=== PATIENT | male | born 1960 | race Caucasian/White ===

== ENCOUNTER 2017-07-03 14:04 | Emergency (ER) | payer BC ==
[~2017-07-03] VITALS: Ht 180.3 cm; Wt 98.0 kg
[~2017-07-03 14:04] MED LIST: CIPR500T4 PO; HYDR-3498 PO; LISI-329 PO; LOVA40TA PO; METR500T PO; OMEP20CA16 PO; ONDA8TAB83 PO; VALA1000 PO
[2017-07-03 14:10] VITALS: Ht 180.3 cm; Wt 98.0 kg
[2017-07-03] MEDS ORDERED: HYDROCODONE/APAP (10/325) TAB PO ONE (14:30)
[2017-07-03] MEDS ORDERED: SOD CHLORIDE 0.9% 1,000 ML IV STA (14:34)
[2017-07-03] MEDS ORDERED: KETOROLAC 30 MG INJ IV STA (14:34)
[2017-07-03 14:55] LABS: BASOPHIL # 0.1 10^3/ul (0.0-0.1); BASOPHILS % 0.8 % (0.0-2.0); EOSINOPHILS # 0.1 10^3/ul (0.0-0.5); EOSINOPHILS % 1.3 % (0.0-7.0); HEMATOCRIT 42.9 % (42.0-52.0); HEMOGLOBIN 15.6 g/dl (14.0-18.0); LYMPHOCYTES # 1.7 10^3/ul (0.8-2.9); LYMPHOCYTES % 17.9 % (15.0-51.0); MEAN CORPUSCULAR HEMOGLOBIN 33.8 pg (29.0-33.0); MEAN CORPUSCULAR HGB CONC 36.4 g/dl (32.0-37.0); MEAN CORPUSCULAR VOLUME 93.1 fl (82.0-101.0); MEAN PLATELET VOLUME 9.6 fl (7.4-10.4); MONOCYTE # 0.8 10^3/ul (0.3-0.9); MONOCYTES % 8.4 % (0.0-11.0); NEUTROPHILS % 71.3 % (39.0-77.0); PLATELET COUNT 221 10^3/UL (140-415); RED BLOOD COUNT 4.61 10^6/ul (4.70-6.10); RED CELL DISTRIBUTION WIDTH 12.8 % (11.5-14.5); WHITE BLOOD COUNT 9.3 10^3/ul (4.8-10.8)
[2017-07-03 15:12] LABS: ADD UMIC YES; UR ASCORBIC ACID NEGATIVE (NEGATIVE); UR BACTERIA FEW /HPF (NONE SEEN); UR BILIRUBIN (Dip) NEGATIVE (NEGATIVE); UR BLOOD (Dip) 3+ mg/dL (NEGATIVE); UR CLARITY CLOUDY (CLEAR); UR COLOR YELLOW (YELLOW); UR GLUCOSE (Dip) NEGATIVE (NEGATIVE); UR KETONES (Dip) NEGATIVE (NEGATIVE); UR LEUKOCYTE ESTERASE (Dip) NEGATIVE Leu/ul (NEGATIVE); UR MUCUS FEW /HPF (NONE SEEN); UR NITRITE (Dip) NEGATIVE (NEGATIVE); UR RBC > 182 /HPF (0-5); UR SPECIFIC GRAVITY (Dip) 1.014 (1.003-1.030); UR TOTAL PROTEIN (Dip) 1+ mg/dl (NEGATIVE); UR UROBILINOGEN (Dip) NEGATIVE (NEGATIVE)
[2017-07-03 15:14] LABS: ALBUMIN 4.4 g/dl (3.3-4.9); ALBUMIN/GLOBULIN RATIO 1.51; BILIRUBIN,INDIRECT 0.4 mg/dl (0-1.1); BILIRUBIN,TOTAL 0.4 mg/dl (0.2-1.3); CALCIUM 9.6 mg/dl (8.4-10.2); CREATININE 0.95 mg/dl (0.61-1.24); POTASSIUM 3.8 mmol/L (3.5-5.1); TOTAL PROTEIN 7.3 g/dl (6.1-8.1)
--- NOTE | 2017-07-03 16:19 | RADRPT ---
PROCEDURE: CT abdomen and pelvis without contrast. CLINICAL INDICATION: Abdominal pain. TECHNIQUE: CT scan of the abdomen and pelvis without contrast was performed on a multi-slice CT [facility] . Sagittal and coronal reformatted images were obtained from the axial source images. One or more of the following dose reduction techniques were used: - Automated exposure control. - Adjustment of the mA and/or kV according to patient size. - Use of iterative reconstruction technique. DLP 1124.5 mGycm. CTDIvol 18.7 mGy COMPARISON: 02/01/2016 FINDINGS: The lung bases are clear. Coronary artery calcifications are seen in the heart. There is limited evaluation of the solid viscera from the lack of IV contrast. There is an obstructing stone within the distal left ureter just beyond the level of the iliac vesse ls that measures 5 mm which causes mild left-sided hydronephrosis and perinephric fat stranding. Th ere is a nonobstructing 5 mm stone in the upper pole of the right kidney. No right-sided ureteral s tone is present with no inflammation. There is fatty infiltration of the liver with no gross focal lesion or biliary ductal dilatation. T he gallbladder is unremarkable without inflammation. The spleen is unremarkable without mass. The adrenal glands are within normal limits without mass. The pancreas is unremarkable without focal lesion or surrounding inflammatory changes. There is no bowel obstruction or focal bowel inflammation. The appendix is unremarkable. There is a fecal filled colon.. There is diverticulosis without diverticulitis. There is no free air or erika e fluid. There are no enlarged lymph nodes. There is aortic atherosclerosis without aneurysmal dilatation. Degenerative changes are seen in t he lumbar spine with no acute osseous abnormality. The prostate is mildly enlarged. IMPRESSION: Obstructing distal left ureteral stone causes mild hydronephrosis and measures 5 mm. Nonobstructing right-sided stone is present. Fatty liver. No evidence of bowel obstruction or inflammation. There is a fecal filled colon. There is diverticul osis without diverticulitis. Atherosclerotic disease is present. RPTAT: AA .Fatoumata Parrish MD, Date Time Electronically viewed and signed by .Fatoumata Parrish MD, MD on 07/03/2017 16:19 .Cherelle/
[2017-07-03] MEDS ORDERED: TAMS-14 PO (17:19)
[2017-07-03] MEDS ORDERED: IBUP-1542 PO (17:19)
[2017-07-03] MEDS ORDERED: HYDR-906 PO (17:19)
[2017-07-03] MEDS ORDERED: ONDA4TAB14 PO (17:20)
--- NOTE | 2017-07-03 17:30 | ERD ---
ER Documentation Chief Complaint Date/Time DATE: 07/03/17 TIME: 17:22 Chief Complaint pt bib self with c/o left sided flank pain hx kidney stones HPI Patient is a 56-year-old male past medical history of diverticulitis and nephrolithiasis who presents to the emergency department with left-sided flank pain which started 1 day ago. Patient describes the pain to be in the left flank and radiating into left abdomen. Patient states the pain is like a "roller coaster". Patient denies any fevers, chills, nausea, vomiting, dysuria , hematuria, frequency. Patient states he did try acupuncture for symptoms yesterday with no alleviation. Denies any rectal bleeding, testicular pain or penile discharge. ROS All systems reviewed and are negative except as per history of present illness. Medications Home Meds Active Scripts Ondansetron (Ondansetron Odt) 4 Mg Tab.rapdis, 4 MG PO Q6H Y for NAUSEA AND/OR VOMITING, #10 TAB Prov:DARLIN LOVETT PA-C 07/03/17 Tamsulosin Hcl* (Flomax*) 0.4 Mg Cap.er.24h, 0.4 MG PO QPM, #15 CAP Prov:DARLIN LOVETT PA-C 07/03/17 Ibuprofen* (Motrin*) 600 Mg Tab, 600 MG PO Q6, #30 TAB Prov:DARLIN LOVETT PA-C 07/03/17 Hydrocodone/Acetaminophen ([place] 5-325 Tablet) 1 Each Tablet, 1 TAB PO Q6H Y for PAIN, #7 TAB Prov:DARLIN LOVETT PA-C 07/03/17 Hydrocodone Bit-Acetaminophen* ([place]*) 5-325 Mg Tab, 1 TAB PO q6h Y for PAIN LEVEL 6-10, #10 TAB Prov:MIJARESKAYLAA Chris. INVESTMENT REPRESENTATIVE 02/03/16 Ciprofloxacin Hcl* (Ciprofloxacin Hcl*) 500 Mg Tablet, 500 MG PO BID, #14 TAB Prov:MIJARESMARC V. INVESTMENT REPRESENTATIVE 02/03/16 Metronidazole* (Flagyl*) 500 Mg Tablet, 500 MG PO Q8 for 7 Days, TAB Prov:MIJARESMARC V. INVESTMENT REPRESENTATIVE 02/03/16 Reported Medications Valacyclovir Hcl* (Valacyclovir Hcl*) 1,000 Mg Tablet, 2000 MG PO BID, #20 02/01/16 Lovastatin (Lovastatin) 40 Mg Tablet, 40 MG PO QHS 02/01/16 Lisinopril-Hydrochlorothiazide (Lisinopril-HCTZ) 20-25 Mg Tab, 1 TAB PO BID 02/01/16 Omeprazole* (Omeprazole*) 20 Mg Capsule.dr, 20 MG PO DAILY 02/01/16 Ondansetron Hcl* (Ondansetron Hcl*) 8 Mg Tablet, 8 MG PO Q8 Y for NAUSEA AND/OR VOMITING 02/01/16 Allergies Allergies: Coded Allergies: No Known Allergy (Unverified , 01/31/16) PMhx/Soc History of Surgery: Yes (hernia and tonsillectomy) Anesthesia Reaction: No Hx Neurological Disorder: No Hx Respiratory Disorders: No Hx Cardiac Disorders: Yes (htn, high cholesterol) Hx Psychiatric Problems: No Hx Miscellaneous Medical Probl: Yes (kidney stones, diverticulitis) Hx Alcohol Use: Yes (occasional) Hx Substance Use: No Hx Tobacco Use: Yes Smoking Status: Current some day smoker Physical Exam Vitals Vital Signs Date Time Temp Pulse Resp B/P Pulse Ox O2 Delivery O2 Flow Rate FiO2 07/03/17 14:10 98.2 82 18 198/81 97 Physical Exam GENERAL: Well-developed, well-nourished male. Diffiiculty with sitting still. HEAD: Normocephalic, atraumatic. EYES: Pupils are equally reactive bilaterally. EOMs grossly intact. No conjunctival erythema. ENT: Moist mucous membranes. No uvula deviation. No kissing tonsils. NECK: Supple. No meningismus. Normal range of motion of the neck. LUNG: Clear to auscultation bilaterally. No rhonchi, wheezing, rales or coarse breath sounds. HEART: Regular rate and rhythm. No murmurs, rubs or gallops. ABDOMEN: Soft, nontender, and nondistended. Positive bowel sounds in all four quadrants. No rebound tenderness, no guarding. (-) McBurney's point tenderness. Left CVA tenderness. EXTREMITIES: Equal pulses bilaterally. No peripheral clubbing, cyanosis or edema. No unilateral leg swelling. NEUROLOGIC: Alert and oriented. Moving all four extremities without any difficulty. Normal speech. Steady gait. SKIN: Normal color. Warm and dry. No rashes or lesions. Result Diagram: 07/03/17 3795 07/03/17 1445 Results 24 hrs Laboratory Tests Test 07/03/17 14:45 White Blood Count 9.310^3/ul Red Blood Count 4.6110^6/ul Hemoglobin 15.6g/dl Hematocrit 42.9% Mean Corpuscular Volume 93.1fl Mean Corpuscular Hemoglobin 33.8pg Mean Corpuscular Hemoglobin Concent 36.4g/dl Red Cell Distribution Width 12.8% Platelet Count 07996^3/UL Mean Platelet Volume 9.6fl Neutrophils % 71.3% Lymphocytes % 17.9% Monocytes % 8.4% Eosinophils % 1.3% Basophils % 0.8% Nucleated Red Blood Cells % 0.0/100WBC Neutrophils # (Manual) 6.610^3/ul Lymphocytes # 1.710^3/ul Monocytes # 0.810^3/ul Eosinophils # 0.110^3/ul Basophils # 0.110^3/ul Nucleated Red Blood Cells # 0.010^3/ul Urine Color YELLOW Urine Clarity CLOUDY Urine pH 7.0 Urine Specific [place] 1.014 Urine Ketones NEGATIVEmg/dL Urine Nitrite NEGATIVEmg/dL Urine Bilirubin NEGATIVEmg/dL Urine Urobilinogen NEGATIVEmg/dL Urine Leukocyte Esterase NEGATIVELeu/ul Urine Microscopic RBC > 182/HPF Urine Microscopic WBC 18/HPF Urine Bacteria FEW/HPF Urine Mucus FEW/HPF Urine Yeast (Budding) /HPF Urine Hemoglobin 3+mg/dL Urine Glucose NEGATIVEmg/dL Urine Total Protein 1+mg/dl Sodium Level 139mmol/L Potassium Level 3.8mmol/L Chloride Level 106mmol/L Carbon Dioxide Level 27mmol/L Anion Gap 10 Blood Urea Nitrogen 14mg/dl Creatinine 0.95mg/dl Glucose Level 102mg/dl Calcium Level 9.6mg/dl Total Bilirubin 0.4mg/dl Direct Bilirubin 0.00mg/dl Indirect Bilirubin 0.4mg/dl Aspartate Amino Transf (AST/SGOT) 24IU/L Alanine Aminotransferase (ALT/SGPT) 35IU/L Alkaline Phosphatase 72IU/L Total Protein 7.3g/dl Albumin 4.4g/dl Globulin 2.90g/dl Albumin/Globulin Ratio 1.51 Lipase 59U/L Current Medications Medications (Trade) Dose Ordered Sig/Juhi Route PRN Reason Start Time Stop Time Status Last Admin Dose Admin Acetaminophen/ Hydrocodone Bitart 1 tab 1 tab ONCE ONCE PO 07/03/17 14:30 07/03/17 14:31 Cancel Sodium Chloride (NS) 1,000 ml @ 1,000 mls/hr Q1H STAT IV 07/03/17 14:34 07/03/17 15:33 DC 07/03/17 14:54 Ketorolac Tromethamine (Toradol) 30 mg ONCE STAT IV 07/03/17 14:34 07/03/17 14:37 DC 07/03/17 14:53 Procedures/MDM ED COURSE: The patient was stable throughout ED course. I kept the patient and/or family informed of laboratory and diagnostic imaging results throughout the ED course. DIAGNOSTIC IMAGING: Read by radiologist. DIAGNOSTIC IMAGING REPORT Patient: RENATO TOM : 1960 Age: 56 Sex: M MR #: [id number] DOS: 07/03/17 1505 Ordering MD: DARLIN LOVETT PA-C Location: [facility] Room/Bed: PROCEDURE: CT abdomen and pelvis without contrast. CLINICAL INDICATION: Abdominal pain. TECHNIQUE: CT scan of the abdomen and pelvis without contrast was performed on a multi-slice CT scanner . Sagittal and coronal reformatted images were obtained from the axial source images. One or more of the following dose reduction techniques were used: - Automated exposure control. - Adjustment of the mA and/or kV according to patient size. - Use of iterative reconstruction technique. DLP 1124.5 mGycm. CTDIvol 18.7 mGy COMPARISON: 02/01/2016 FINDINGS: The lung bases are clear. Coronary artery calcifications are seen in the heart. There is limited evaluation of the solid viscera from the lack of IV contrast. There is an obstructing stone within the distal left ureter just beyond the level of the iliac vessels that measures 5 mm which causes mild left-sided hydronephrosis and perinephric fat stranding. There is a nonobstructing 5 mm stone in the upper pole of the right kidney. No right-sided ureteral stone is present with no inflammation. There is fatty infiltration of the liver with no gross focal lesion or biliary ductal dilatation. The gallbladder is unremarkable without inflammation. The spleen is unremarkable without mass. The adrenal glands are within normal limits without mass. The pancreas is unremarkable without focal lesion or surrounding inflammatory changes. There is no bowel obstruction or focal bowel inflammation. The appendix is unremarkable. There is a fecal filled colon.. There is diverticulosis without diverticulitis. There is no free air or free fluid. There are no enlarged lymph nodes. There is aortic atherosclerosis without aneurysmal dilatation. Degenerative changes are seen in the lumbar spine with no acute osseous abnormality. The prostate is mildly enlarged. IMPRESSION: Obstructing distal left ureteral stone causes mild hydronephrosis and measures 5 mm. Nonobstructing right-sided stone is present. Fatty liver. No evidence of bowel obstruction or inflammation. There is a fecal filled colon. There is diverticulosis without diverticulitis. Atherosclerotic disease is present. RPTAT: AA .Fatoumata Parrish MD, MD Date Time Electronically viewed and signed by .Fatoumata Parrish MD, MD on 07/03/2017 16:19 .J/ CC: DARLIN LOVETT PA-C MEDICAL DECISION MAKING: This is a 56-year-old male who presents emergency department for concerns of left-sided flank pain which is episodic in nature. Vital signs were reviewed. Patient is afebrile. Patient is not hypoxic. Abdominal exam revealed + Left sided CVA tenderness. UA showed + blood, no nitrites, no leukocyte esterase. CBC showed no evidence of systemic infection or severe anemia. CMP showed no evidence of electrolyte abnormalities, severe acidosis, alkalosis, renal failure, or liver disease. CT abdomen pelvis showed Obstructing distal left ureteral stone causes mild hydronephrosis and measures 5 mm. Nonobstructing right-sided stone is present. Fatty liver. No evidence of bowel obstruction or inflammation. There is a fecal filled colon. There is diverticulosis without diverticulitis. Atherosclerotic disease is present. I discussed the patient's presentation with my supervising physician Dr. Sharma who agreed the patient is stable for outpatient management. Given these findings, the patients presentation is most consistent with nephrolithiasis and diverticulosis. I have a much lower clinical concern for appendicitis, pyelonephritis, UTI, diverticulitis, AAA, bowel perforation, mesenteric ischemia, prostatitis, epididymitis, testicular torsion. PRESCRIPTIONS: Ibuprofen, [place],, Tamsulosin, Zofran DISCHARGE: Patient stable for outpatient management. Patient was given a copy of all blood work and imaging studies obtained today. I have instructed the patient to follow-up with his/her primary care physician in 2-3 days. Advised to follow -up with urologist. Referral information provided. I have instructed the patient to promptly return to the ER at any time for any new or worsening symptoms including increased pain, fever, discharge, nausea, vomiting or gross hematuria. The patient and/or family expressed understanding of and agreement with this plan. All questions were answered. Home care instructions were provided. Disclaimer: Inadvertent spelling and grammatical errors are likely due to EHR/ dictation software use and do not reflect on the overall quality of patient care. Also, please note that the electronic time recorded on this note does not necessarily reflect the actual time of the patient encounter. RPTAT: AA .Fatoumata Parrish MD, MD Date Time Electronically viewed and signed by .Fatoumata Parrish MD, MD on 07/03/2017 16:19 .J/ CC: DARLIN LOVETT PA-C PROCEDURES: None. MEDICATIONS GIVEN: IV fluids, Toradol Patient tolerated medication well with no adverse reactions. Patient reported improvement in pain. Departure Diagnosis: Primary Impression: Nephrolithiasis Additional Impression: Diverticulosis Diverticulosis site: unspecified location Diverticulosis bleeding: diverticulosis without bleeding Qualified Code: K57.90 - Diverticulosis of intestine without bleeding, unspecified intestinal tract location Condition: Stable Patient Instructions: Kidney Stones: Are You at Risk?, Understanding Kidney Stones Referrals: VIRGINIA ESPINOSA MD, GALESH L. MD DULA, EUGENE MD GARRETT,CHRISTIAN MABRY,MIHAI DASILVA,NANETTE Ash MD Additional Instructions: Drink plenty of fluids. Follow-up with your primary care physician for referral to a urologist for your ongoing kidney stones. Call your primary care doctor TOMORROW for an appointment during the next 1-2 days.See the doctor sooner or return here if your condition worsens before your appointment time. DARLIN LOVETT PA-C Jul 03, 2017 17:30
[2017-07-03 17:37] VITALS: BP 139/68; PULSE 79; RESP 18; TEMP 98.5
== END 2017-07-03 17:40 | disposition home or self-care (01) ==
LOC: FTE 14:04
DX: N20.0 Calculus of kidney (principal); K57.90 Diverticulosis of intestine, part unspecified, without perforation or abscess without bleeding; I10 Essential (primary) hypertension; F17.210 Nicotine dependence, cigarettes, uncomplicated
CPT/HCPCS: 36415; 74176; 80053; 81001; 83690; 85025; 96374; 99285; J1885; J7030

== ENCOUNTER 2017-08-07 07:02 | Emergency (ER) | payer BC ==
[~2017-08-07] VITALS: Ht 167.6 cm; Wt 97.0 kg
[~2017-08-07 07:02] MED LIST changes: +HYDR-906 PO; +IBUP-1542 PO; +ONDA4TAB14 PO; +TAMS-14 PO
[2017-08-07 07:05] VITALS: Ht 167.6 cm; Wt 97.0 kg
[2017-08-07] MEDS ORDERED: ONDANSETRON 4 MG INJ IV STA (07:24)
[2017-08-07] MEDS ORDERED: SOD CHLORIDE 0.9% 500 ML IV STA (07:24)
[2017-08-07] MEDS ORDERED: morphine 4 MG/ML VIAL IV STA (07:24)
[2017-08-07] MEDS ORDERED: KETOROLAC 15 MG INJ IV STA (07:24)
[2017-08-07] MEDS ORDERED: KETOROLAC 30 MG INJ IV STA (07:28)
[2017-08-07 07:54] LABS: ADD UMIC YES; UR ASCORBIC ACID 40 mg/dL (NEGATIVE); UR BACTERIA FEW /HPF (NONE SEEN); UR BILIRUBIN (Dip) NEGATIVE (NEGATIVE); UR BLOOD (Dip) 2+ mg/dL (NEGATIVE); UR CLARITY CLEAR (CLEAR); UR COLOR YELLOW (YELLOW); UR GLUCOSE (Dip) NEGATIVE (NEGATIVE); UR KETONES (Dip) NEGATIVE (NEGATIVE); UR LEUKOCYTE ESTERASE (Dip) NEGATIVE Leu/ul (NEGATIVE); UR MUCUS FEW /HPF (NONE SEEN); UR NITRITE (Dip) NEGATIVE (NEGATIVE); UR RBC 49 /HPF (0-5); UR SPECIFIC GRAVITY (Dip) 1.021 (1.003-1.030); UR TOTAL PROTEIN (Dip) 1+ mg/dl (NEGATIVE); UR UROBILINOGEN (Dip) NEGATIVE (NEGATIVE)
[2017-08-07] MEDS ORDERED: IBUP800T25 PO (08:08)
[2017-08-07] MEDS ORDERED: TAMS-14 PO (08:08)
[2017-08-07] MEDS ORDERED: OXYC-279 PO (08:08)
--- NOTE | 2017-08-07 08:23 | ERD ---
ER Documentation Chief Complaint Date/Time DATE: 08/07/17 TIME: 08:09 Chief Complaint Complains of flank pain Hx of kidney stone HPI 57-year-old male presenting to the ER complaining of right flank pain. Patient has a history of kidney stones in the past. He was seen here about 1 month ago for left flank pain and was found to have a left-sided ureter stone. On that CT , he was also noted to have a right sided nonobstructing 5 mm stone in the kidney. Patient states that he had pain about 5 days ago as well that self resolved after taking Percocet. He denies any obvious hematuria or dysuria. No fevers but he did have some chills today when he was having the pain with associated nausea but no vomiting. He denies any chest pain, shortness of breath, abdominal pain, or back injury. He does see a urologist for his kidney stones. ROS All systems reviewed and are negative except as per history of present illness. Medications Home Meds Active Scripts Oxycodone HCl/Acetaminophen (Percocet 5-325 mg Tablet) 1 Each Tablet, 1 EACH PO Q4 Y for SEVERE PAIN LEVEL 7-10, #7 TAB Prov:MADONNA CALDERON MD 08/07/17 Ibuprofen* (Motrin*) 800 Mg Tab, 800 MG PO Q6H Y for PAIN AND OR ELEVATED TEMP, #30 TAB Prov:MADONNA CALDERON MD 08/07/17 Tamsulosin Hcl* (Flomax*) 0.4 Mg Cap.er.24h, 0.4 MG PO QPM, #30 CAP Prov:MADONNA CALDERON MD 08/07/17 Ondansetron (Ondansetron Odt) 4 Mg Tab.rapdis, 4 MG PO Q6H Y for NAUSEA AND/OR VOMITING, #10 TAB Prov:DARLIN LOVETT PA-C 07/03/17 Tamsulosin Hcl* (Flomax*) 0.4 Mg Cap.er.24h, 0.4 MG PO QPM, #15 CAP Prov:DARLIN LOVETT PA-C 07/03/17 Ibuprofen* (Motrin*) 600 Mg Tab, 600 MG PO Q6, #30 TAB Prov:DARLIN LOVETT PA-C 07/03/17 Hydrocodone/Acetaminophen ([place] 5-325 Tablet) 1 Each Tablet, 1 TAB PO Q6H Y for PAIN, #7 TAB Prov:DARLIN LOVETT PA-C 07/03/17 Hydrocodone Bit-Acetaminophen* ([place]*) 5-325 Mg Tab, 1 TAB PO q6h Y for PAIN LEVEL 6-10, #10 TAB Prov:MIJARES,MARC V. SUPERVISOR [employer] 02/03/16 Ciprofloxacin Hcl* (Ciprofloxacin Hcl*) 500 Mg Tablet, 500 MG PO BID, #14 TAB Prov:MIJARES,MARC V. SUPERVISOR [employer] 02/03/16 Metronidazole* (Flagyl*) 500 Mg Tablet, 500 MG PO Q8 for 7 Days, TAB Prov:MIJARES,MARC V. SUPERVISOR [employer] 02/03/16 Reported Medications Valacyclovir Hcl* (Valacyclovir Hcl*) 1,000 Mg Tablet, 2000 MG PO BID, #20 02/01/16 Lovastatin (Lovastatin) 40 Mg Tablet, 40 MG PO QHS 02/01/16 Lisinopril-Hydrochlorothiazide (Lisinopril-HCTZ) 20-25 Mg Tab, 1 TAB PO BID 02/01/16 Omeprazole* (Omeprazole*) 20 Mg Capsule.dr, 20 MG PO DAILY 02/01/16 Ondansetron Hcl* (Ondansetron Hcl*) 8 Mg Tablet, 8 MG PO Q8 Y for NAUSEA AND/OR VOMITING 02/01/16 Allergies Allergies: Coded Allergies: No Known Allergy (Unverified , 01/31/16) PMhx/Soc History of Surgery: No Anesthesia Reaction: No Hx Neurological Disorder: No Hx Respiratory Disorders: No Hx Cardiac Disorders: No Hx Psychiatric Problems: No Hx Miscellaneous Medical Probl: Yes (Kidney stones) Hx Alcohol Use: No Hx Substance Use: No Hx Tobacco Use: No Smoking Status: Current every day smoker FmHx Family History: No diabetes Physical Exam Vitals Vital Signs Date Time Temp Pulse Resp B/P Pulse Ox O2 Delivery O2 Flow Rate FiO2 08/07/17 07:05 97.0 66 20 165/87 96 Physical Exam Const: Well-appearing, no apparent distress, sitting comfortably in bed, no diaphoresis, nontoxic Head: Atraumatic Eyes: Normal Conjunctiva ENT: Normal External Ears, Nose and Mouth. Neck: Full range of motion..~ No meningismus. Resp: Clear to auscultation bilaterally Cardio: Regular rate and rhythm, no murmurs. 2+ distal pulses Abd: Soft, non tender, non distended. Normal bowel sounds Skin: No petechiae or rashes Back: Mild right CVA tenderness Ext: No cyanosis, or edema Neur: Awake and alert Psych: Normal Mood and Affect Results 24 hrs Laboratory Tests Test 08/07/17 07:40 Urine Color YELLOW Urine Clarity CLEAR Urine pH 6.0 Urine Specific [place] 1.021 Urine Ketones NEGATIVEmg/dL Urine Nitrite NEGATIVEmg/dL Urine Bilirubin NEGATIVEmg/dL Urine Urobilinogen NEGATIVEmg/dL Urine Leukocyte Esterase NEGATIVELeu/ul Urine Microscopic RBC 49/HPF Urine Microscopic WBC 2/HPF Urine Bacteria FEW/HPF Urine Mucus FEW/HPF Urine Hemoglobin 2+mg/dL Urine Glucose NEGATIVEmg/dL Urine Total Protein 1+mg/dl Current Medications Medications (Trade) Dose Ordered Sig/Juhi Route PRN Reason Start Time Stop Time Status Last Admin Dose Admin Sodium Chloride (NS) 500 ml @ 500 mls/hr Q1H STAT IV 08/07/17 07:24 08/07/17 08:23 08/07/17 07:35 Morphine Sulfate (morphine) 4 mg ONCE STAT IV 08/07/17 07:24 08/07/17 07:25 DC Ondansetron HCl (Zofran Inj) 4 mg ONCE STAT IV 08/07/17 07:24 08/07/17 07:25 DC 08/07/17 07:36 Ketorolac Tromethamine (Toradol) 15 mg ONCE STAT IV 08/07/17 07:24 08/07/17 07:29 DC Ketorolac Tromethamine (Toradol) 30 mg ONCE STAT IV 08/07/17 07:28 08/07/17 07:30 DC 08/07/17 07:42 Procedures/MDM Patient is presenting with flank pain. He is afebrile with stable vitals.Diagnoses considered are AAA, renal artery or vein thromoembolism, aortic dissection, pyelonephritis, retroperitoneal hemorrhage, ureterolithiasis , I reviewed his as well as spinal emergencies, among others. I reviewed his CT scan from his prior visit 1 month ago. He had a 5 mm nonobstructing right- sided kidney stone. I suspect his pain is secondary to the stone now likely in the ureter. Urinalysis did not show evidence of infection. I have a low suspicion for other etiologies for his pain. I do not think he needs any further workup at this time, including imaging. Toradol and Zofran were given IV for pain with improvement. Patient remained hemodynamically stable. I will discharge him with a prescription for ibuprofen, Flomax, and Percocet. He was advised to follow-up with his urologist. Return precautions were given. Patient's blood pressure was elevated (>120/80) but appears stable without evidence of hypertension emergency or urgency. The patient was counseled about the risks of hypertension and urged to pursue outpatient monitoring and therapy within a week with their primary care physician. Departure Diagnosis: Primary Impression: Acute right flank pain Additional Impressions: Microscopic hematuria Renal colic on right side Condition: Stable Patient Instructions: Kidney Stone W/ Colic MADONNA CALDERON MD Aug 07, 2017 08:23
== END 2017-08-07 08:36 | disposition home or self-care (01) ==
LOC: E/R 07:02
DX: N23 Unspecified renal colic (principal); R31.29 Other microscopic hematuria; F17.210 Nicotine dependence, cigarettes, uncomplicated
CPT/HCPCS: 36415; 81001; 96374; 96375; 99284; J1885; J2405; J7040